=== PATIENT | male | born 1990 | race Hispanic/Latino ===

== ENCOUNTER 2022-09-13 01:51 | Emergency (ER) | payer SELFPAY ==
[2022-09-13] MEDS ORDERED: LORTAB 1010 MG PO (03:26)
[2022-09-13 03:37] VITALS: BP 130/68
== END 2022-09-13 04:15 | disposition home or self-care (01) | DRG 563 ==
LOC: ED 01:51
PROC: 2W3EX1Z Immobilization of Right Hand using Splint (ICD-10-PCS; principal; 2022-09-13)
DX: S62.231A Other displaced fracture of base of first metacarpal bone, right hand, initial encounter for closed fracture (principal); W01.0XXA Fall on same level from slipping, tripping and stumbling without subsequent striking against object, initial encounter